=== PATIENT | male | born 1975 | race Caucasian/White ===

== ENCOUNTER → 2017-11-23 | Outpatient (REF) ==
--- NOTE | 2017-11-23 14:07 | EKG ---
FACILITY: [facility] - [place] PATIENT NAME: LAUREL GARCIA : [id number] MR: [id number] V: [id number] EXAM DATE: ORDERING PHYSICIAN: OTILIA PERERA TECHNOLOGIST: ALEX Mercedes Reason : TACHY Blood Pressure : / mmHG Vent. Rate : 094 BPM Atrial Rate : 094 BPM P-R Int : 154 ms QRS Dur : 088 ms QT Int : 360 ms P-R-T Axes : 083 088 079 degrees QTc Int : 450 ms Normal sinus rhythm Artifact making strict interpretation difficult Confirmed by YENNI UNGER ([id number]) on 11/23/2017 5:57:45 PM Referred By: TREVER Confirmed By:YENNI UNGER
== END ==
LOC: US 11-09 00:48
PROVIDERS: ATTEND Nurse Practitioner
DX: R00.0 Tachycardia, unspecified (principal)
CPT/HCPCS: 93005; 93306

== ENCOUNTER → 2018-01-01 | Outpatient (REF) ==
--- NOTE | 2018-01-01 13:34 | RADIOLOGY IMAGING REPORT ---
FAC[place] [facility] [place]IENT NAME: Tate Valdes : 1975 MR: [id number] V: [id number] EXAM DATE: ORDERING PHYSICIAN: GILBERT MERCADO TECHNOLOGIST: Location: [facility] [place] Patient: Tate Valdes : 1975 Visit/Account:[id number] Date of Sevice: 01/01/2018 Exam type: KNEE 4 VIEW LEFT History: Left knee injury x10 years ago with chronic pain Comparison: None. Findings: There is old fracture deformity through the left lateral tibial plateau and the proximal left fibula. No significant joint space is identified involving all three compartments. No opaque intra-articul ar loose body is seen IMPRESSION: 1. Old posttraumatic deformity involving the left lateral tibial plateau in the proximal left fibula Report Dictated By: Kait Reynolds MD at 01/01/2018 1:28 PM Report E-Signed By: Kait Reynolds MD at 01/01/2018 1:31 PM WSN:[email or web address]
== END ==
LOC: RAD 12:52
PROVIDERS: ATTEND Orthopaedic Surgery Orthopaedic Surgery of the Spine
DX: M25.562 Pain in left knee (principal); S89.92XA Unspecified injury of left lower leg, initial encounter
CPT/HCPCS: 73564

== ENCOUNTER 2018-07-06 17:20 | Emergency (ER) | payer SELFPAY ==
--- NOTE | 2018-07-06 17:37 | ER Report ---
History and Physical Time Seen By MD: 17:37 Hx. of Stated Complaint: patient reports that he feels his blood pressure and heart rate are high. recently diagnosed with htn HPI/ROS CHIEF COMPLAINT: Elevated heart rate, elevated blood pressure HISTORY OF PRESENT ILLNESS: 43-year-old male patient presents to emergency room with complaint of elevated heart rate, elevated blood pressure. Patient states that he's had a lot of stress recently. He states that he recently got an infection noticed from his apartment. He is not sure what he is going to do. Patient states that he checked his blood pressure either late this morning early this afternoon and noted that it was elevated, 149/119 heart rate of 120. He states that he has been concerned about that and came in for evaluation. Patient states he is not taking any treatment for this. He did have a couple of alcoholic beverages this afternoon. He does smoke, approximately up off every 30 minutes on a pipe. Patient denies any fevers, chills, nausea or diarrhea. Pat ient states he does have "stressed dreams" and does wake up daily short of breath and will often vomit. Patient denies any suicidal ideation, any suicidal plans. Patient did request to speak with a mental healthcare professional. REVIEW OF SYSTEMS: Respiratory: Chronic wheezing with intermittent dyspnea.. Cardiovascular: Intermittent chest pain going on for quite some time. Gastrointestinal: No vomiting, no abdominal pain. Musculoskeletal: No back pain. Allergies: Coded Allergies: No Known Drug Allergies (Unverified , 07/06/18) Home Meds Active Scripts Hydroxyzine Hcl (HYDROXYZINE HCL) 25 Mg Tablet, 25 MG PO Q4-6H PRN for ANXIETY, #20 TAB Prov:WALKER ALDRIDGE 07/06/18 Past Medical/Surgical History Patient has a past medical history of hypertension, alcohol use, depression, suicide attempt. Patient denies any pertinent surgical history. Reviewed Nurses Notes: Yes Hx Substance Use Disorder: No Hx Alcohol Use: Yes Constitutional Vital Sign - Last 24 Hours 07/06/18 07/06/18 07/06/18 07/06/18 17:23 17:24 17:30 17:45 Pulse 85 Resp 20 B/P (MAP) 126/89 126/89 (101) 113/84 (94) 116/84 (95) Pulse Ox 90 O2 Delivery Room Air 07/06/18 07/06/18 07/06/1818 17:50 18:00 18:15 18:20 Pulse 77 78 B/P (MAP) 114/84 (94) 115/89 (98) Pulse Ox 87 88 07/06/18 07/06/18 07/06/18 07/06/18 18:30 18:30 18:30 18:39 Pulse 79 68 Resp 17 17 B/P (MAP) 118/80 (93) Pulse Ox 88 O2 Delivery Room Air 07/06/18 07/06/18 07/06/18 07/06/18 18:45 19:00 19:15 19:33 Pulse 85 Resp 16 B/P (MAP) 117/84 (95) 109/83 (92) 103/75 (84) 107/62 (77) Pulse Ox 90 O2 Delivery Room Air Physical Exam General Appearance: The patient is alert, has no immediate need for airway protection and no current signs of toxicity. Respiratory: Chest is non tender, lungs are clear to auscultation. Cardiac: regular rate and rhythm Gastrointestinal: Abdomen is soft and non tender, no masses, bowel sounds normal. Musculoskeletal: Neck: Neck is supple and non tender. Extremities have full range of motion and are non tender. Skin: No rashes or lesions. DIFFERENTIAL DIAGNOSIS: After history and physical exam differential diagnosis was considered for anxiety, hypertension, depression. Medical Decision Making Data Points Result Diagram: 07/06/18180707/06/181807 Laboratory Hematology Test 07/06/18 18:08 Red Blood Count 5.68 M/uL (4.00-5.60) Mean Corpuscular Volume 93.6 fL (80.0-96.0) Mean Corpuscular Hemoglobin 32.7 pg (26.0-33.0) Mean Corpuscular Hemoglobin Concent 34.9 g/dL (32.0-36.0) Red Cell Distribution Width 14.2 % (11.5-14.5) Mean Platelet Volume 7.5 fL (7.2-11.1) Neutrophils (%) (Auto) 54.5 % (39.4-72.5) Lymphocytes (%) (Auto) 33.4 % (17.6-49.6) Monocytes (%) (Auto) 8.6 % (4.1-12.4) Eosinophils (%) (Auto) 2.6 % (0.4-6.7) Basophils (%) (Auto) 0.9 % (0.3-1.4) Nucleated RBC Relative Count (auto) 0.1 /100WBC Neutrophils # (Auto) 6.0 K/uL (2.0-7.4) Lymphocytes # (Auto) 3.6 K/uL (1.3-3.6) Monocytes # (Auto) 0.9 K/uL (0.3-1.0) Eosinophils # (Auto) 0.3 K/uL (0.0-0.5) Basophils # (Auto) 0.1 K/uL (0.0-0.1) Nucleated RBC Absolute Count (auto) 0.01 K/uL Sodium Level 138 mmol/L (137-145) Potassium Level 3.7 mmol/L (3.5-5.0) Chloride Level 102 mmol/L (98-107) Carbon Dioxide Level 27 mmol/L (22-30) Blood Urea Nitrogen 13 mg/dl (9-21) Creatinine 0.80 mg/dl (0.66-1.25) Glomerular Filtration Rate Calc > 60.0 Random Glucose 110 mg/dl (75-110) Calcium Level 8.2 mg/dl (8.4-10.2) Total Bilirubin 0.3 mg/dl (0.2-1.3) Aspartate Amino Transf (AST/SGOT) 32 U/L (0-35) Alanine Aminotransferase (ALT/SGPT) 37 U/L (0-56) Alkaline Phosphatase 47 U/L (0-126) Total Protein 6.9 g/dl (6.3-8.2) Albumin 4.0 g/dl (3.5-5.0) Chemistry Test 07/06/18 18:08 White Blood Count 10.9 k/uL (4.5-11.0) Red Blood Count 5.68 M/uL (4.00-5.60) Hemoglobin 18.6 g/dL (14.0-18.0) Hematocrit 53.1 % (42.0-52.0) Mean Corpuscular Volume 93.6 fL (80.0-96.0) Mean Corpuscular Hemoglobin 32.7 pg (26.0-33.0) Mean Corpuscular Hemoglobin Concent 34.9 g/dL (32.0-36.0) Red Cell Distribution Width 14.2 % (11.5-14.5) Platelet Count 241 K/uL (150-450) Mean Platelet Volume 7.5 fL (7.2-11.1) Neutrophils (%) (Auto) 54.5 % (39.4-72.5) Lymphocytes (%) (Auto) 33.4 % (17.6-49.6) Monocytes (%) (Auto) 8.6 % (4.1-12.4) Eosinophils (%) (Auto) 2.6 % (0.4-6.7) Basophils (%) (Auto) 0.9 % (0.3-1.4) Nucleated RBC Relative Count (auto) 0.1 /100WBC Neutrophils # (Auto) 6.0 K/uL (2.0-7.4) Lymphocytes # (Auto) 3.6 K/uL (1.3-3.6) Monocytes # (Auto) 0.9 K/uL (0.3-1.0) Eosinophils # (Auto) 0.3 K/uL (0.0-0.5) Basophils # (Auto) 0.1 K/uL (0.0-0.1) Nucleated RBC Absolute Count (auto) 0.01 K/uL Glomerular Filtration Rate Calc > 60.0 Calcium Level 8.2 mg/dl (8.4-10.2) Total Bilirubin 0.3 mg/dl (0.2-1.3) Aspartate Amino Transf (AST/SGOT) 32 U/L (0-35) Alanine Aminotransferase (ALT/SGPT) 37 U/L (0-56) Alkaline Phosphatase 47 U/L (0-126) Total Protein 6.9 g/dl (6.3-8.2) Albumin 4.0 g/dl (3.5-5.0) EKG/Imaging EKG Interpretation 12 lead EKG: Rhythm: normal sinus rhythm with a ventricular rate of 74 bpm Ramona: normal QRS: normal ST segments: normal Imaging 2 VIEWS CHEST INDICATION: Elevated blood pressure. COMPARISON: None available FINDINGS: Cardiomediastinal silhouette and pulmonary vessels within normal limits. There is no focal infiltrate or lobar consolidation. There is no pneumothorax or pleural effusion. No nodule. Upper abdomen is unremarkable. No acute bony abnormality. IMPRESSION: 1. No acute cardiopulmonary process. Report Dictated By: Manoj James at 07/06/2018 7:12 PM Report E-Signed By: Manoj James at 07/06/2018 7:13 PM ED Course/Re-evaluation ED Course Patient was admitted to an exam room, history and physical were obtained. Differential diagnoses were considered. On examination lungs are clear, heart is regular, abdomen is soft and nontender. I believe the patient likely has anxiety which is indwelling cause of his elevated heart rate as well as his high blood pressure which was noted earlier today. However I did want to make sure there is not an underlying medical problem. A CBC, CMP, chest x-ray and EKG were done. Lab results were negative, EKG and chest x-ray were negative. Patient did receive a nebulizer treatment here. I discussed results with patient he felt significantly better. We will go ahead and discharge him home at this time. Patient will be given a prescription of hydroxyzine to help with his anxiety and hopefully his sleep. He is follow-up with Amarilys Duffy next week as previously scheduled. Patient verbalized understanding and agreement with plan. Decision to Disposition Date: Jul 06, 2018 Decision to Disposition Time: 19:28 Depart Departure Latest Vital Signs Vital Signs Date Time Temp Pulse Resp B/P (MAP) Pulse Ox O2 Delivery O2 Flow Rate FiO2 07/06/18 19:33 85 16 107/62 (77) 90 Room Air Impression: Primary Impression: Anxiety Condition: Improved Disposition: HOME OR SELF-CARE New Scripts Hydroxyzine Hcl (HYDROXYZINE HCL) 25 Mg Tablet 25 MG PO Q4-6H PRN for ANXIETY, #20 TAB Prov: WALKER ALDRIDGE 07/06/18 Patient Instructions: Anxiety (ED) Additional Instructions: Get plenty of rest. Increase fluid intake. Follow up with Amarilys Guillen on Jul.12 as scheduled. Return to the ER if condition worsens. Use relaxation techniques to help cope with the anxiety. WALKER ALDRIDGE Jul 06, 2018 17:37
--- NOTE | 2018-07-06 18:06 | EKG ---
FACILITY: [facility] - [place] PATIENT NAME: LAUREL GARCIA : [id number] MR: [id number] V: [id number] EXAM DATE: ORDERING PHYSICIAN: WALKER ALDRIDGE TECHNOLOGIST: Test Reason : Elevated BP Blood Pressure : / mmHG Vent. Rate : 074 BPM Atrial Rate : 074 BPM P-R Int : 162 ms QRS Dur : 096 ms QT Int : 390 ms P-R-T Axes : 048 078 052 degrees QTc Int : 432 ms Normal sinus rhythm Normal ECG Relatively unchanged from previous, but the previous had baseline artifact that makes V1-3 lead shahana rison difficult Confirmed by YENNI UNGER ([id number]) on 07/06/2018 8:45:45 PM Referred By: Confirmed By:YENNI UNGER
[2018-07-06 18:14] LABS: PLATELET COUNT, AUTOMATED 241 K/uL (150-450)
[2018-07-06] MEDS ORDERED: ALBUTEROL/IPRATROPIUM 3 ML NEB NEB ONE (18:20)
--- NOTE | 2018-07-06 19:17 | RADIOLOGY IMAGING REPORT ---
FACILITY: [facility] - [place] PATIENT NAME: Tate Valdes : 1975 MR: [id number] V: [id number] EXAM DATE: [id number] ORDERING PHYSICIAN: WALKER ALDRIDGE TECHNOLOGIST: Location: [facility] [place] Patient: Tate Valdes : 1975 Visit/Account:[id number] Date of Sevice: 07/06/2018 2 VIEWS CHEST INDICATION: Elevated blood pressure. COMPARISON: None available FINDINGS: Cardiomediastinal silhouette and pulmonary vessels within normal limits. There is no focal infiltrate or lobar consolidation. There is no pneumothorax or pleural effusion. No nodule. Upper abdomen is unremarkable. No acute bony abnormality. IMPRESSION: 1. No acute cardiopulmonary process. Report Dictated By: Manoj James at 07/06/2018 7:12 PM Report E-Signed By: Manoj James at 07/06/2018 7:13 PM WSN:[id number]
[2018-07-06] MEDS ORDERED: HYDR-4225 PO (19:26)
[2018-07-06 19:33] VITALS: BP 107/62
== END 2018-07-06 19:36 | disposition home or self-care (01) ==
LOC: ER 17:43
DX: F41.9 Anxiety disorder, unspecified (principal)
CPT/HCPCS: 36415; 71046; 85025; 93005; 94640; 99283; J7620; 82040; 82247; 82310; 82374; 82435; 82565; 82947; 84075; 84132; 84155; 84295; 84450; 84460; 84520

== ENCOUNTER 2018-08-29 03:14 | Emergency (ER) | payer SELFPAY ==
[~2018-08-29 03:14] MED LIST: HYDR-4225 PO
[2018-08-29 03:33] VITALS: BP 130/91
[2018-08-29] MEDS ORDERED: METO25TA93 PO (03:50)
[2018-08-29] MEDS ORDERED: CLON-333 PO (03:50)
[2018-08-29] MEDS ORDERED: PARO40TA88 PO (03:50)
[2018-08-29] MEDS ORDERED: BREX2TAB (03:50)
--- NOTE | 2018-08-29 03:52 | ER Report ---
History and Physical Time Seen By MD: 03:52 Hx. of Stated Complaint: PATIENT STATES THAT HE HAS BEEN HAVE TERRIBLE BACK PAIN SINCE YESTERDAY MORNING; PATIENT STATES THAT HE OCC. 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 He has low back pain. Has intermittent problems with pain. Tonight lumbar area down to tail bone. No radiation to legs. No sacral anesthesia. Normal bowel and bladder. No weakness in legs. No numbness in legs. Some radiation to upper lumbar area. No injuries. No fevers or chills. Moving makes it worse. No cough or shortness of breath. No extremity pain. No chest pain. Allergies: Coded Allergies: No Known Drug Allergies (Unverified , 07/06/18) Home Meds Active Scripts Cyclobenzaprine Hcl (CYCLOBENZAPRINE HCL) 10 Mg Tablet, 10 MG PO Q8H PRN for MUSCLE SPASMS, #20 TAB 0 Refills Prov:JANNET HANNAH MD 08/29/18 Ketorolac Tromethamine (KETOROLAC TROMETHAMINE) 10 Mg Tab, 10 MG PO Q6H PRN for PAIN, #12 TAB 0 Refills Prov:JANNET HANNAH MD 08/29/18 Reported Medications Metoprolol Tartrate (METOPROLOL TARTRATE) 25 Mg Tablet, 1 TAB PO BID, TAB 08/29/18 Brexpiprazole (Rexulti) 2 Mg Tablet 08/29/18 Paroxetine Hcl (PAROXETINE HCL) 40 Mg Tablet, 60 MG PO QDAY 08/29/18 Clonazepam (CLONAZEPAM) 1 Mg Tablet, 1 MG PO BID, #6 TAB 08/29/18 Discontinued Scripts Hydroxyzine Hcl (HYDROXYZINE HCL) 25 Mg Tablet, 25 MG PO Q4-6H PRN for ANXIETY, #20 TAB Prov:WALKER ALDRIDGE 07/06/18 Reviewed Nurses Notes: Yes Hx Substance Use Disorder: No Hx Alcohol Use: Yes Constitutional Vital Sign - Last 24 Hours 08/29/18 03:33 Temp 98.3 Pulse 100 Resp 18 B/P (MAP) 130/91 Pulse Ox 92 O2 Delivery Room Air Physical Exam General Appearance: The patient is alert. No acute distress. Eyes: Pupils are equal, round. No pallor, injection or icterus. ENT: Mucous membranes are moist. Respiratory: Breathing easily, clear. Cardiovascular: Regular rate and rhythm. Normal capillary refill. Gastrointestinal: Abdomen is soft and non tender. No costovertebral angle tenderness with percussion. Neurological: Alert and oriented x3. Normal sensation. Normal strength. Negative strait leg raises. Skin: Warm and dry. No rashes. Musculoskeletal: Pain throughout lumbar area. Full range of motion. No pain in thoracic spine. DIFFERENTIAL DIAGNOSIS: After history and physical exam, differential diagnosis was considered for low back pain, no sign of weakness, numbness or bowel/bladder dysfunction. Medical Decision Making ED Course/Re-evaluation ED Course Minimal improvement with Toradol IM and Tylenol PO. Will send home with Toradol and Flexeril and keep off work today. Decision to Disposition Date: Aug 29, 2018 Decision to Disposition Time: 05:24 Depart Departure Latest Vital Signs Vital Signs Date Time Temp Pulse Resp B/P (MAP) Pulse Ox O2 Delivery O2 Flow Rate FiO2 08/29/18 03:33 98.3 100 18 130/91 92 Room Air Impression: Primary Impression: Low back pain Condition: Improved Disposition: HOME OR SELF-CARE New Scripts Cyclobenzaprine Hcl (CYCLOBENZAPRINE HCL) 10 Mg Tablet 10 MG PO Q8H PRN for MUSCLE SPASMS, #20 TAB 0 Refills Prov: JANNET HANNAH MD 08/29/18 Ketorolac Tromethamine (KETOROLAC TROMETHAMINE) 10 Mg Tab 10 MG PO Q6H PRN for PAIN, #12 TAB 0 Refills Prov: JANNET HANNAH MD 08/29/18 Patient Instructions: Acute Low Back Pain (ED) Additional Instructions: Toradol 10 mg tablets, one every 6 hours as needed for pain. Take with food. Flexeril 10 mg tablets, one every 8 hours as needed for muscle spasm and pain. Heat or ice as needed to help with back pain. Begin gentle range of motion exercises. Problem Qualifiers Primary Impression: Low back pain Chronicity: acute Back pain laterality: midline Sciatica presence: without sciatica Qualified Codes: M54.5 - Low back pain JANNET HANNAH MD Aug 29, 2018 03:52
[2018-08-29] MEDS ORDERED: ACETAMINOPHEN 500 MG TAB PO ONE (04:05)
[2018-08-29] MEDS ORDERED: KETOROLAC 60 MG/2 ML VIAL IM ONE (04:05)
[2018-08-29] MEDS ORDERED: CYCL10TA29 PO (05:26)
[2018-08-29] MEDS ORDERED: KET10 PO (05:26)
[2018-08-29] MEDS ORDERED: CYCLOBENZAPRINE HCL 10 MG TH PO ONE (05:30)
[2018-08-29] MEDS ORDERED: KETOROLAC TROM 10 MG TAB TH PO ONE (05:30)
== END 2018-08-29 05:53 | disposition home or self-care (01) ==
LOC: ER 03:36
DX: M54.5 Low back pain (principal)
CPT/HCPCS: 96372; 99283; J1885

== ENCOUNTER → 2018-11-01 | Outpatient (REF) ==
[~2018-11-01] MED LIST changes: +BREX2TAB; +CLON-333 PO; +CYCL10TA29 PO; +KET10 PO; +METO25TA93 PO; +PARO40TA88 PO
--- NOTE | 2018-11-01 12:37 | RADIOLOGY IMAGING REPORT ---
FACILITY: [facility] PATIENT NAME: Tate Valdes : 1975 MR: [id number] V: [id number] EXAM DATE: ORDERING PHYSICIAN: OTILIA PERERA TECHNOLOGIST: [place] [facility] [place]: Tate Valdes : 1975 Visit/Account:[id number] Date of Sevice: 11/01/2018 Exam type: CERVICAL SPINE 2 OR 3 VIEW History: Starting to loose feeling in left hand, no known injury Comparison: None. Findings: Three views of the cervical spine demonstrate straightening of normal cervical doses which may be rel ated to muscle spasm or patient positioning. There is mild disc space narrowing at C5-6 with anterio r osteophytes. A syndesmophyte is noted anteriorly at C4-5. No evidence of prevertebral soft tissue swelling. IMPRESSION: 1. Mild spondylotic changes in the lower cervical spine as described. If symptoms persist MR may be helpful Report Dictated By: Kait Reynodls MD at 11/01/2018 12:32 PM Report E-Signed By: Kait Reynolds MD at 11/01/2018 12:33 PM WSN:[email or web address]
--- NOTE | 2018-11-01 12:41 | RADIOLOGY IMAGING REPORT ---
[facility] PATIENT NAME: Tate Valdes : 1975 MR: [id number] V: [id number] EXAM DATE: ORDERING PHYSICIAN: OTILIA PERERA TECHNOLOGIST: Location: [facility] - [place] Patient: Tate Valdes : 1975 Visit/Account:[id number] Date of Sevice: 11/01/2018 Exam type: XR WRIST 3 OR MORE VIEWS LT History: Starting to stealing and left hand Comparison: None. Findings: Three views of the left wrist demonstrate no evidence of acute fracture dislocation or significant ar thritic change IMPRESSION: 1. No acute osteoarticular abnormality the left wrist is seen Report Dictated By: Kait Reynolds MD at 11/01/2018 12:33 PM Report E-Signed By: Kait Reynolds MD at 11/01/2018 12:34 PM WSN:[email or web address]
== END ==
LOC: RAD 11:41
PROVIDERS: ATTEND Nurse Practitioner
DX: M47.892 Other spondylosis, cervical region (principal)
CPT/HCPCS: 72040